=== PATIENT | male | born 1960 | race African-American/Black ===

== ENCOUNTER 2018-11-20 11:29 | Inpatient (IN) | payer OTHER ==
[2018-11-20 12:41] VITALS: BMI 18.1
--- NOTE | 2018-11-20 13:22 | PN ---
[facility] CIWA - CIWA Score Nausea/Vomitin-No Nausea/No Vomiting Muscle Tremors: 1-None Visible, but [place] Anxiety: 4-Mod. Anxious/Guarded Agitation: 0-Normal Activity Paroxysmal Sweats: No Perspiration Orientation: 0-Oriented Tacttile Disturbances: 0-None Auditory Disturbances: 0-None Visual Disturbances: 0-None Headache: 0-None Present CIWA-Ar Total Score: 5
[2018-11-20] MEDS ORDERED: hydrOXYzine PAMOATE 25 MG CAPSULE (FP) PO PRN (13:29)
[2018-11-20] MEDS ORDERED: MAGNESIUM HYDROX 2400MG/30ML ORAL SUSPENSION 30 ML CUP PO PRN (13:29)
[2018-11-20] MEDS ORDERED: IBUPROFEN 400 MG TABLET (FP) PO PRN (13:29)
[2018-11-20] MEDS ORDERED: MAGNESIUM CITRATE 300 ML BOTTLE PO PRN (13:29)
[2018-11-20] MEDS ORDERED: ONDANSETRON *ODT* 4 MG TABLET SL PRN (13:29)
[2018-11-20] MEDS ORDERED: NICOTINE POLACRILEX 2 MG GUM BUC PRN (13:29)
[2018-11-20] MEDS ORDERED: BISMUTH SUBSALICYLATE 262 MG/15 ML BTL PO PRN (13:29)
[2018-11-20] MEDS ORDERED: guaiFENesin 200 MG/10 ML 10 ML UNIT-DOSE CUPS PO PRN (13:29)
[2018-11-20] MEDS ORDERED: traZODone HCL 50 MG TABLET (FP) PO PRN (13:29)
[2018-11-20] MEDS ORDERED: ACETAMINOPHEN 325 MG TABLET (FP) PO PRN ×2 (13:29)
[2018-11-20] MEDS ORDERED: MENTHOL/PHENOL 1 EACH UD MM PRN (13:29)
[2018-11-20] MEDS ORDERED: MAG HYDROX/AL HYDROX/SIMETH 30 ML UNIT-DOSE CUP PO PRN (13:29)
[2018-11-20] MEDS ORDERED: chlordiazePOXIDE HCL 10 MG CAPSULE PO PRN (13:33)
--- NOTE | 2018-11-20 13:47 | HP ---
CIWA Score Nausea/Vomitin-Mild Nausea/No Vomiting Muscle Tremors: 1-None Visible, but [place] Anxiety: 5 Agitation: 2 Paroxysmal Sweats: 1-Minimal Palms Moist Orientation: 0-Oriented Tacttile Disturbances: 0-None Auditory Disturbances: 0-None Visual Disturbances: 0-None Headache: 3-Moderate CIWA-Ar Total Score: 13 - Admission Criteria OASAS Guidelines: Admission for Medically Managed Detox: Requires at least one of the followin. CIWA greater than 12 2. Seizures within the past 24 hours 3. Delirium tremens within the past 24 hours 4. Hallucinations within the past 24 hours 5. Acute intervention needed for co occurring medical disorder 6. Acute intervention needed for co occurring psychiatric disorder 7. Severe withdrawal that cannot be handled at a lower level of care (continued vomiting, continued diarrhea, abnormal vital signs) requiring intravenous medication and/or fluids 8. Admission ROS [facility] Chief Complaint: ETOH withdrawal symptoms. Allergies/Adverse Reactions: Allergies Allergy/AdvReac Type Severity Reaction Status Date / Time No Known Allergies Allergy Verified 11/20/18 12:27 History of Present Illness: Patient is 58 year old AA male with PMH of HTN and Sciatica. Patient is first time admission to [facility] for ETOH withdrawal symptoms. Patient has been treated with Vivitrol 380mg IM monthly at [facility]. Patient has been on treatment x 3 months but relapsed one and half weeks prior to monthly dose due on 11/16/2018. Patient missed groups due to work schedule and was drinking 1/ 2 pint of vodka daily since. Last drink was last night, patient has hx of drinking since teenager. Patient denies hx of seizures, DTs and blackouts. + hx of eye paid search specialist. Patient denies hx of mental illness and SI/HI. VICTORINA 0.0 Urine tox negative. Exam Limitations: No Limitations - Ebola screening Have you traveled outside of the country in the last 21 days: No (N) Have you had contact with anyone from an Ebola affected area: No Have you been sick,other than usual withdrawal symptoms: No Do you have a fever: No - Review of Systems Constitutional: Unintentional Wgt. Loss EENT: reports: No Symptoms Reported Respiratory: reports: No Symptoms reported Cardiac: reports: No Symptoms Reported GI: reports: Nausea, Poor Fluid Intake, Abdominal cramping : reports: Frequency (due to etoh intake) Musculoskeletal: reports: Back Pain, Muscle Pain Integumentary: reports: Sweating (mild moisture to palms of hands) Neuro: reports: Headache, Tremors Endocrine: reports: Unexplained Weight Loss Hematology: reports: No Symptoms Reported Psychiatric: reports: Orientated x3, Anxious Patient History - Patient Medical History Hx Anemia: No Hx Asthma: No Hx Chronic Obstructive Pulmonary Disease (COPD): No Hx Cancer: No Hx Cardiac Disorders: No Hx Congestive Heart Failure: No Hx Hypertension: Yes Hx Hypercholesterolemia: No Hx Pacemaker: No HX Cerebrovascular Accident: No Hx Seizures: No Hx Dementia: No Hx Diabetes: No Hx Gastrointestinal Disorders: No Hx Liver Disease: No Hx Genitourinary Disorders: No Hx Sexually Transmitted Disorders: No Hx Renal Disease (ESRD): No Hx Thyroid Disease: No Hx Human Immunodeficiency Virus (HIV): No (last test negative 2018) Hx Hepatitis C: No Hx Depression: No Hx Suicide Attempt: No Hx Bipolar Disorder: No Hx Schizophrenia: No - Patient Surgical History Past Surgical History: Yes Hx Neurologic Surgery: No Hx Cataract Extraction: No Hx Cardiac Surgery: No Hx Lung Surgery: No Hx Breast Surgery: No Hx Breast Biopsy: No Hx Abdominal Surgery: No Hx Appendectomy: No Hx Cholecystectomy: No Hx Genitourinary Surgery: No Hx Orthopedic Surgery: Yes (right TKR ) Anesthesia Reaction: No - PPD History Previous Implant?: Yes Documented Results: Negative w/o proof PPD to be Administered?: No - Smoking Cessation Smoking history: Current every day smoker Have you smoked in the past 12 months: Yes Aproximately how many cigarettes per day: 20 Hx Chewing Tobacco Use: No Initiated information on smoking cessation: Yes 'Breaking Loose' booklet given: 11/20/18 - Substance & Tx. History Hx Alcohol Use: Yes Hx Substance Use: No Substance Use Type: Alcohol Hx Substance Use Treatment: No - Substances abused Alcohol Substance route: Oral Frequency: Daily Amount used: 1/2-1 PINT Age of first use: 11 Date of last use: 11/19/18 Family Disease History - Family Disease History Family Disease History: Other: Mother (ALCOHOLISM) Admission Physical Exam [facility] - Vital Signs Vital Signs: Vital Signs - 24 hr 11/20/18 11/20/18 12:27 13:07 Temperature 97.5 F L 97.5 F L Pulse Rate 66 66 Respiratory 18 18 Rate Blood Pressure 143/84 143/84 - Physical General Appearance: Yes: Appropriately Dressed, Thin, Tremorous, Sweating, Anxious HEENTM: Yes: EOMI, Hearing grossly Normal, Normocephalic, Normal Voice, GUILLE, Pharynx Normal, Scleral Ictenus R, Scleral Ictenus L Respiratory: Yes: Chest Non-Tender, Lungs Clear, Normal Breath Sounds, No Respiratory Distress, No Accessory Muscle Use Neck: Yes: No masses,lesions,Nodules, Supple, Trachea in good position Breast: Yes: Breast Exam Deferred Cardiology: Yes: Regular Rhythm, Regular Rate, S1, S2 Abdominal: Yes: Normal Bowel Sounds, Non Tender, Flat Genitourinary: Yes: Frequency (due to etoh intake) Back: Yes: Muscle Spasm Extremities: Yes: Normal Inspection, Normal Range of Motion, Non-Tender, Tremors Neurological: Yes: wood shop teacher II-XII NML intact, Fully Oriented, Alert, Motor Strength 5/5, Normal Response, Other (anxious) Integumentary: Yes: Normal Color, Warm, Moist Lymphatic: Yes: Within Normal Limits - Diagnostic (1) Alcohol dependence with uncomplicated withdrawal Current Visit: Yes Status: Acute (2) HTN (hypertension) Current Visit: Yes Status: Chronic Qualifiers: Hypertension type: essential hypertension Qualified Code(s): I10 - Essential (primary) hypertension (3) Substance-induced anxiety disorder Current Visit: Yes Status: Suspected Cleared for Admission [facility] - Detox or Rehab [facility] Level of Care: Medically Managed Detox Regimen/Protocol: Librium Breathalyzer - Breathalyzer Breathalyzer: 0 Urine Drug Screen - Test Device Lot number: [id number] Expiration date: 08/28/20 - Control Is test valid?: Yes - Results Drug screen NEGATIVE: Yes Inpatient Rehab Admission - Rehab Decision to Admit Inpatient rehab admission?: No
[2018-11-20] MEDS: BACLOFEN 10 MG TABLET (FP) PO SCH ×2 (15:24→22:07)
[2018-11-20 17:00] LABS: HEMATOCRIT 40.9 % (35.4-49); HEMOGLOBIN 13.8 GM/dL (11.7-16.9); MCH 32.4 pg (25.7-33.7); MCHC 33.8 g/dl (32.0-35.9); MEAN CELL VOLUME 95.9 fl (80-96); MEAN PLT VOLUME 10.1 fl (7.5-11.1); PLATELET COUNT 216 K/MM3 (134-434); RBC 4.27 M/mm3 (4.00-5.60); RDW 15.3 % (11.9-15.9); WHITE BLOOD COUNT 4.1 K/mm3 (4.0-10.0)
[2018-11-20 17:23] LABS: ALBUMIN 3.8 g/dl (3.4-5.0); BILIRUBIN,TOTAL 2.1 mg/dL (0.2-1); BLOOD UREA NITROGEN 19.9 mg/dL (7-18); CALCIUM 9.6 mg/dL (8.5-10.1); CREATININE 0.8 mg/dL (0.55-1.3); POTASSIUM 3.6 mmol/L (3.5-5.1); TOT PROT 6.7 g/dl (6.4-8.2)
[2018-11-20] MEDS: chlordiazePOXIDE HCL 25 MG CAPSULE PO SCH (22:07)
[2018-11-20] MEDS: THIAMINE HCL 100 MG TABLET (FP) PO SCH (22:07)
[2018-11-20] MEDS: MELATONIN 5 MG TABLETS PO PRN (22:08)
[2018-11-21] MEDS: chlordiazePOXIDE HCL 25 MG CAPSULE PO SCH ×3 (05:43→22:37)
[2018-11-21] MEDS: BACLOFEN 10 MG TABLET (FP) PO SCH ×3 (05:43→22:36)
[2018-11-21] MEDS: NICOTINE 21 MG/24 HOURS TOPICAL PATCH TD SCH (10:14)
[2018-11-21] MEDS: PRENATAL VITAMINS W/ FOLIC ACID TABLET (FP) PO SCH (10:15)
[2018-11-21] MEDS: amLODIPine BESYLATE 5 MG TABLET (FP) PO SCH (10:15)
--- NOTE | 2018-11-21 12:06 | PN ---
S CIWA - CIWA Score Nausea/Vomitin-No Nausea/No Vomiting Muscle Tremors: None Anxiety: 3 Agitation: 2 Paroxysmal Sweats: 3 Orientation: 0-Oriented Tacttile Disturbances: 0-None Auditory Disturbances: 0-None Visual Disturbances: 0-None Headache: 2-Mild CIWA-Ar Total Score: 10 S Progress Note (SOAP) Subjective: c/o sweats, anxiety, and headache. Objective: 11/21/18 12:05 Vital Signs 11/21/18 11/21/18 06:00 10:02 Temperature 98.1 F 97.7 F Pulse Rate 58 L 54 L Respiratory 18 16 Rate Blood Pressure 148/92 136/76 Lab Results WBC 4.1 K/mm3 (4.0-10.0) 11/20/18 14:00 RBC 4.27 M/mm3 (4.00-5.60) 11/20/18 14:00 Hgb 13.8 GM/dL (11.7-16.9) 11/20/18 14:00 Hct 40.9 % (35.4-49) 11/20/18 14:00 MCV 95.9 fl (80-96) 11/20/18 14:00 MCHC 33.8 g/dl (32.0-35.9) 11/20/18 14:00 RDW 15.3 % (11.9-15.9) 11/20/18 14:00 Plt Count 216 K/MM3 (134-434) 11/20/18 14:00 Sodium 142 mmol/L (136-145) 11/20/18 14:00 Potassium 3.6 mmol/L (3.5-5.1) 11/20/18 14:00 Chloride 104 mmol/L (98-107) 11/20/18 14:00 Carbon Dioxide 30 mmol/L (21-32) 11/20/18 14:00 Anion Gap 7 MMOL/L (8-16) L 11/20/18 14:00 BUN 19.9 mg/dL (7-18) H 11/20/18 14:00 Creatinine 0.8 mg/dL (0.55-1.3) 11/20/18 14:00 Random Glucose 97 mg/dL (74-106) 11/20/18 14:00 Calcium 9.6 mg/dL (8.5-10.1) 11/20/18 14:00 Labs noted. Assessment: 11/21/18 12:05 AOX3, in no acute respiratory distress. Full ROM, ambulating in the unit. Withdrawal symptoms. Plan: continue detox.
[2018-11-21] MEDS: MELATONIN 5 MG TABLETS PO PRN (22:37)
[2018-11-21] MEDS: THIAMINE HCL 100 MG TABLET (FP) PO SCH (22:37)
[2018-11-22] MEDS: BACLOFEN 10 MG TABLET (FP) PO SCH ×3 (05:57→22:42)
[2018-11-22] MEDS: chlordiazePOXIDE 5 MG CAPSULE PO SCH ×3 (05:57→22:42)
[2018-11-22] MEDS: NICOTINE 21 MG/24 HOURS TOPICAL PATCH TD SCH (10:44)
[2018-11-22] MEDS: PRENATAL VITAMINS W/ FOLIC ACID TABLET (FP) PO SCH (10:44)
[2018-11-22] MEDS: amLODIPine BESYLATE 5 MG TABLET (FP) PO SCH (10:44)
--- NOTE | 2018-11-22 17:06 | PN ---
[facility] CIWA - CIWA Score Nausea/Vomitin-No Nausea/No Vomiting Muscle Tremors: 2 Anxiety: 2 Agitation: 2 Paroxysmal Sweats: 2 Orientation: 0-Oriented Tacttile Disturbances: 0-None Auditory Disturbances: 0-None Visual Disturbances: 0-None Headache: 0-None Present CIWA-Ar Total Score: 8 S Progress Note (SOAP) Subjective: Feels ok, medication is helping Objective: 11/22/18 17:02 Last Vital Signs Temp Pulse Resp BP Pulse Ox 97.5 F L 64 18 139/94 11/22/18 13:20 11/22/18 13:20 11/22/18 13:20 11/22/18 13:20 Elevated b/p 139/94 (has htn, on med) Laboratory Tests 11/20/18 11/20/18 11/20/18 14:00 14:00 14:00 WBC 4.1 RBC 4.27 Hgb 13.8 Hct 40.9 MCV 95.9 MCH 32.4 MCHC 33.8 RDW 15.3 Plt Count 216 MPV 10.1 Sodium 142 Potassium 3.6 Chloride 104 Carbon Dioxide 30 Anion Gap 7 L BUN 19.9 H Creatinine 0.8 Est GFR (CKD-EPI)AfAm 113.33 Est GFR (CKD-EPI)NonAf 97.78 Random Glucose 97 Calcium 9.6 Total Bilirubin 2.1 H AST 20 ALT 21 Alkaline Phosphatase 66 Total Protein 6.7 Albumin 3.8 RPR Titer Nonreactive HIV 1&2 Ag/Ab, 4th Gen HIV 1&2 Antibody Screen HIV P24 Antigen 11/21/18 11/21/18 06:00 07:00 WBC RBC Hgb Hct MCV MCH MCHC RDW Plt Count MPV Sodium Potassium Chloride Carbon Dioxide Anion Gap BUN Creatinine Est GFR (CKD-EPI)AfAm Est GFR (CKD-EPI)NonAf Random Glucose Calcium Total Bilirubin AST ALT Alkaline Phosphatase Total Protein Albumin RPR Titer HIV 1&2 Ag/Ab, 4th Gen Non reactive HIV 1&2 Antibody Screen Cancelled HIV P24 Antigen Cancelled Labs reviewed: bun 19.9, total bilirubin 2.1 (elevated) Assessment: 11/22/18 17:04 Withdrawal sxs Noted with HTN, azotemia and elevated total bilirubin Plan: Continue detox HTN: continue norvasc, monitor b/p Azotemia: encouraged PO water intake Elevated total bilirubin: most likely from alcoholism, repeat serum total bilirubin
[2018-11-22] MEDS: THIAMINE HCL 100 MG TABLET (FP) PO SCH (22:43)
[2018-11-23] MEDS ORDERED: chlordiazePOXIDE HCL 10 MG CAPSULE PO PRN
[2018-11-23] MEDS: BACLOFEN 10 MG TABLET (FP) PO SCH ×3 (05:22→22:04)
[2018-11-23] MEDS: chlordiazePOXIDE HCL 10 MG CAPSULE PO SCH ×3 (05:22→22:03)
[2018-11-23] MEDS: NICOTINE 21 MG/24 HOURS TOPICAL PATCH TD SCH (10:13)
[2018-11-23] MEDS: amLODIPine BESYLATE 5 MG TABLET (FP) PO SCH (10:14)
[2018-11-23] MEDS: PRENATAL VITAMINS W/ FOLIC ACID TABLET (FP) PO SCH (10:14)
--- NOTE | 2018-11-23 11:34 | PN ---
S CIWA - CIWA Score Nausea/Vomitin-No Nausea/No Vomiting Muscle Tremors: 1-None Visible, but [place] Anxiety: 0-No Anxiety, at Ease Agitation: 1-Slight > Activity Paroxysmal Sweats: 2 Orientation: 0-Oriented Tacttile Disturbances: 0-None Auditory Disturbances: 0-None Visual Disturbances: 0-None Headache: 0-None Present CIWA-Ar Total Score: 4 [facility] Progress Note (SOAP) Subjective: feeling good little anxiety Objective: 11/23/18 11:34 Vital Signs Temperature 97.3 F L 11/23/18 09:37 Pulse Rate 74 11/23/18 09:37 Respiratory Rate 16 11/23/18 09:37 Blood Pressure 123/84 11/23/18 09:37 O2 Sat by Pulse Oximetry (%) aaox3 ambulating no acute distress Assessment: 11/23/18 11:34 mild withdrawal sx Plan: continue detox d/c in am
--- NOTE | 2018-11-23 13:04 | EKG ---
Test Reason : Blood Pressure : / mmHG Vent. Rate : 054 BPM Atrial Rate : 054 BPM P-R Int : 170 ms QRS Dur : 100 ms QT Int : 418 ms P-R-T Axes : 065 035 060 degrees QTc Int : 396 ms SINUS BRADYCARDIA MODERATE VOLTAGE CRITERIA FOR LVH, MAY BE NORMAL VARIANT BORDERLINE ECG NO PREVIOUS ECGS AVAILABLE Confirmed by MEHNAZ GOINS MD ([id number]) on 11/23/2018 1:03:54 PM Referred By: Confirmed By:EMHNAZ GOINS MD
[2018-11-23] MEDS: MELATONIN 5 MG TABLETS PO PRN (22:03)
[2018-11-23] MEDS: THIAMINE HCL 100 MG TABLET (FP) PO SCH (22:03)
--- NOTE | 2018-11-23 23:45 | PN ---
[facility] Progress Note Note: Patient fell in the day room. He reports that he tripped while returning a chair to the day room. He has a laceration to his right eye brow and right eye redness and swelling. He is alert and oriented to person, time, place and situation. He denies loss of consciousness, dizziness, Vital Signs - 24 hr 11/24/18 11/24/18 11/24/18 00:30 05:00 07:00 Temperature 97.7 F 97.7 F Pulse Rate 66 70 Respiratory 18 18 18 Rate Blood Pressure 144/70 157/78 11/24/18 11/24/18 11/24/18 08:09 09:00 09:43 Temperature 97.7 F 97.5 F L 97.5 F L Pulse Rate 66 82 91 H Respiratory 18 18 18 Rate Blood Pressure 144/70 132/68 139/81 PHYSICAL ASSESSMENT: HEAD: Normocephalic. No palpable deformities noted, EYES:PERRLA. Extraocular movements intact. Right eye redness and swelling EARS: Patent Canal. No Ibanez's sign NOSE/FACE: Laceration to right eye brow Mouth: Teath and mandible intact NECK: No midline point tenderness. Trachea midline. Full range of motion of the neck without pain CHEST/HEART: No Surface trauma. Regular rate and rhythm. No murmur, rub or gallop BACK: No contusions, echymosis or abrasions noted EXTREMITIES:No surface trauma. Full range of motion without limitation. Peripheral pulses intact or pain ACTION: Transport patient to ER
[2018-11-24] MEDS ORDERED: chlordiazePOXIDE HCL 10 MG CAPSULE PO ONE (05:00)
[2018-11-24] MEDS: BACLOFEN 10 MG TABLET (FP) PO SCH (06:44)
--- NOTE | 2018-11-24 09:25 | PN ---
S Progress Note Note: pt was seen earlier today with no issues ready to go home when he blew his nose , his right phuong-orbital area became instantly swollen. It appears to be filled with fluid. pt denies of any pain no blurred vision , no VELEZ. pt states this has never happened before. conventional mortgage underwriter called [facility] and spoke with Dr. Craen and report given for evaluation. Plaster Pattern Caster also advised Dr. Crane that pt will be d/c today and can go home after his evaluation.
[2018-11-24 09:44] VITALS: BP 139/81; PULSE 91; TEMP 97.5
--- NOTE | 2018-11-24 10:07 | DS ---
[facility] Detox Discharge Summary Admission Date: 11/20/18 Discharge Date: 11/24/18 - History Present History: Alcohol Dependence - Physical Exam Results Vital Signs: Vital Signs Temperature 97.5 F L 11/24/18 09:43 Pulse Rate 91 H 11/24/18 09:43 Respiratory Rate 18 11/24/18 09:43 Blood Pressure 139/81 11/24/18 09:43 O2 Sat by Pulse Oximetry (%) Pertinent Admission Physical Exam Findings: pt arrived in withdrawals Laboratory Tests 11/20/18 11/20/18 11/20/18 14:00 14:00 14:00 WBC 4.1 RBC 4.27 Hgb 13.8 Hct 40.9 MCV 95.9 MCH 32.4 MCHC 33.8 RDW 15.3 Plt Count 216 MPV 10.1 Sodium 142 Potassium 3.6 Chloride 104 Carbon Dioxide 30 Anion Gap 7 L BUN 19.9 H Creatinine 0.8 Est GFR (CKD-EPI)AfAm 113.33 Est GFR (CKD-EPI)NonAf 97.78 Random Glucose 97 Calcium 9.6 Total Bilirubin 2.1 H AST 20 ALT 21 Alkaline Phosphatase 66 Total Protein 6.7 Albumin 3.8 RPR Titer Nonreactive HIV 1&2 Ag/Ab, 4th Gen HIV 1&2 Antibody Screen HIV P24 Antigen 11/21/18 11/21/18 11/23/18 06:00 07:00 08:35 WBC RBC Hgb Hct MCV MCH MCHC RDW Plt Count MPV Sodium Potassium Chloride Carbon Dioxide Anion Gap BUN Creatinine Est GFR (CKD-EPI)AfAm Est GFR (CKD-EPI)NonAf Random Glucose Calcium Total Bilirubin 1.0 AST ALT Alkaline Phosphatase Total Protein Albumin RPR Titer HIV 1&2 Ag/Ab, 4th Gen Non reactive HIV 1&2 Antibody Screen Cancelled HIV P24 Antigen Cancelled today pt is aaox3 ambulating no s/s of withdrawals however, pt was sent to ED for evaluation of swelling to right phuong-orbital area. - Treatment Hospital Course: Detox Protocol Followed, Detoxed Safely, Responded well, Discharged Condition Good, Rehab Referral Accepted Patient has Accepted a Rehab Referral to: referred to outpatient rehab - Medication Discharge Medications: Ambulatory Orders Amlodipine Besylate [Norvasc -] 5 mg PO DAILY 11/20/18 Baclofen [Lioresal -] 10 mg PO TID 11/20/18 Escitalopram Oxalate [Lexapro -] 10 mg PO DAILY 11/20/18 Multivitamin/Iron/Folic Acid [Daily Vit Formula + Iron Tab] 1 each PO DAILY - Diagnosis (1) Alcohol dependence with uncomplicated withdrawal Current Visit: Yes Status: Chronic (2) HTN (hypertension) Current Visit: Yes Status: Chronic Qualifiers: Hypertension type: essential hypertension Qualified Code(s): I10 - Essential (primary) hypertension (3) Substance-induced anxiety disorder Current Visit: Yes Status: Suspected (4) Closed head injury Current Visit: Yes Status: Acute Qualifiers: Encounter type: initial encounter Qualified Code(s): S09.90XA - Unspecified injury of head, initial encounter - AMA Did Patient Leave Against Medical Advice: No
== END 2018-11-24 09:58 | disposition short-term general hospital (02) | DRG 775 ==
LOC: YASAS 11:29 → Y6N 14:19
PROVIDERS: ADMIT Surgery; ATTEND Surgery
PROC: HZ2ZZZZ Detoxification Services for Substance Abuse Treatment (ICD-10-PCS; principal; 2018-11-20)
DX: F10.230 Alcohol dependence with withdrawal, uncomplicated (principal); F17.210 Nicotine dependence, cigarettes, uncomplicated; F19.280 Other psychoactive substance dependence with psychoactive substance-induced anxiety disorder; I10 Essential (primary) hypertension; R79.89 Other specified abnormal findings of blood chemistry; E80.7 Disorder of bilirubin metabolism, unspecified; M54.30 Sciatica, unspecified side; S09.90XA Unspecified injury of head, initial encounter; S01.111A Laceration without foreign body of right eyelid and periocular area, initial encounter; H57.89 Other specified disorders of eye and adnexa; H05.221 Edema of right orbit; W18.39XA Other fall on same level, initial encounter; Y93.89 Activity, other specified; Y92.238 Other place in hospital as the place of occurrence of the external cause
CPT/HCPCS: 36415; 80053; 82247; 85027; 86480; 86593; 87389; 93005; 93010; J0475

== ENCOUNTER 2018-11-24 01:43 | Emergency (ER) | payer OTHER ==
[2018-11-24 02:17] VITALS: BP 119/75; PULSE 72; TEMP 98.2; BMI 17.1
[2018-11-24] MEDS ORDERED: FLUORESCEIN NA 1 EA STRIP OD ONE (03:05)
--- NOTE | 2018-11-24 03:08 | PDOC ---
History of Present Illness - History of Present Illness Initial Comments: 11/24/18 03:10 Patient is 58 year old AA male with PMH of HTN and Sciatica, sent from [facility] for right eyebow and eye injury hitting himself with a chair. He was being treated at [facility] for ETOH withdrawal symptoms. As per [facility] the patient said he tripped while returning a chair to the day room. He has a laceration to his right eyebrow and what appears to be a subjconjunctival hemorrhage to the right eye redness and swelling. He denies change of vision or pain upon ranging the eye. <Charles Young - Last Filed: 11/24/18 04:22> <Jeanne Mayer - Last Filed: 11/24/18 04:38> - General Chief Complaint: Injury Stated Complaint: FALL/INJURY Past History - Past Medical History Anemia: No Asthma: No Cancer: No Cardiac Disorders: No CVA: No COPD: Yes (Not on meds) CHF: No Dementia: No Diabetes: No GI Disorders: Yes (acid reflux) Disorders: No HTN: Yes Hypercholesterolemia: No Kidney Stones: No Liver Disease: No Seizures: No Thyroid Disease: No - Surgical History Abdominal Surgery: No Appendectomy: No Cardiac Surgery: No Cholecystectomy: No Lung Surgery: No Neurologic Surgery: No Orthopedic Surgery: Yes (right TKR ) - Reproductive History Testicular Surgery: No - Suicide/Smoking/Psychosocial Hx Smoking History: Current some day smoker Have you smoked in the past 12 months: Yes Number of Cigarettes Smoked Daily: 20 Information on smoking cessation initiated: No 'Breaking Loose' booklet given: 11/20/18 Hx Alcohol Use: Yes Drug/Substance Use Hx: No Substance Use Type: Alcohol Hx Substance Use Treatment: Yes <Charles Young - Last Filed: 11/24/18 04:22> <Jeanne Mayer - Last Filed: 11/24/18 04:38> - Past Medical History Allergies/Adverse Reactions: Allergies Allergy/AdvReac Type Severity Reaction Status Date / Time No Known Allergies Allergy Verified 11/24/18 02:17 Home Medications: Ambulatory Orders Amlodipine Besylate [Norvasc -] 5 mg PO DAILY 11/20/18 Baclofen [Lioresal -] 10 mg PO TID 11/20/18 Escitalopram Oxalate [Lexapro -] 10 mg PO DAILY 11/20/18 Multivitamin/Iron/Folic Acid [Daily Vit Formula + Iron Tab] 1 each PO DAILY Trauma Specific PMHX - Complaint Specific PMHX Arthritis: No <Charles Young - Last Filed: 11/24/18 04:22> Review of Systems - Review of Systems Able to Perform ROS?: Yes Is the patient limited [place] proficient: No Constitutional: No: Symptoms Reported HEENTM: No: Symptoms Reported Respiratory: No: Symptoms reported Cardiac (ROS): No: Symptoms Reported ABD/GI: No: Symptoms Reported : No: Symptoms Reported Musculoskeletal: Yes: See HPI Integumentary: No: Symptoms Reported Neurological: No: Symptoms reported All Other Systems: Reviewed and Negative <Charles Young - Last Filed: 11/24/18 04:22> *Physical Exam - Vital Signs Last Vital Signs Temp Pulse Resp BP Pulse Ox 98.2 F 72 19 119/75 98 11/24/18 01:43 11/24/18 01:43 11/24/18 01:43 11/24/18 01:43 11/24/18 01:43 - Physical Exam General Appearance: Yes: Nourished, Appropriately Dressed. No: Apparent Distress HEENT: positive: EOMI, GUILLE, Normal ENT Inspection, Other (right eye: subconjunctival erythema 1cm laceration above right eyebrow. ) Respiratory/Chest: positive: Lungs Clear, Normal Breath Sounds. negative: Chest Tender, Respiratory Distress Cardiovascular: positive: Regular Rhythm, Regular Rate, S1, S2 Gastrointestinal/Abdominal: positive: Normal Bowel Sounds, Flat, Soft. negative : Tender Musculoskeletal: positive: Normal Inspection. negative: CVA Tenderness Extremity: positive: Normal Capillary Refill, Normal Inspection, Normal Range of Motion Integumentary: positive: Normal Color, Dry, Warm Neurologic: positive: Fully Oriented, Alert, Normal Mood/Affect, Normal Response , Motor Strength 5/5 <Charles Young - Last Filed: 11/24/18 04:22> - Vital Signs Last Vital Signs Temp Pulse Resp BP Pulse Ox 98.2 F 72 19 119/75 98 11/24/18 01:43 11/24/18 01:43 11/24/18 01:43 11/24/18 01:43 11/24/18 01:43 <Jeanne Mayer - Last Filed: 11/24/18 04:38> Procedures - Laceration/Wound Repair Right Face Wound Length: to 2.5 cm Wound Explored: clean Wound's Depth, Shape: superficial Irrigated w/ Saline: Yes Betadine Prep: No Wound Debrided: minimal Wound Repaired With: Dermabond <Jeanne Mayer - Last Filed: 11/24/18 04:38> ED Treatment Course - RADIOLOGY Radiology Studies Ordered: Category Date Time Status HEAD CT WITHOUT CONTRAST [CT] Stat CT Scan 11/24/18 02:28 Taken - Medications Given in the ED: ED Medications Discontinued Medications Generic Name Dose Route Start Last Admin Trade Name Freq PRN Reason Stop Dose Admin Fluorescein Sodium 1 ea 11/24/18 03:05 11/24/18 03:20 Fluorets - OD 11/24/18 03:06 1 ea ONCE ONE Administration <Jeanne Mayer - Last Filed: 11/24/18 04:38> Medical Decision Making - Medical Decision Making 11/24/18 03:54 58f with right eyebrow lacerationa and subconjunctival hematoma no change in visual acuity, no pain upon ranging the eye. No trauma identified on the globe or cornea using UV light and florets. Ct head and orbit read: The ventricular system is midline and nondilated. The sulcal pattern is normal for the patient's age. T small vessel ischemic changes are noted. Here is no bleed, mass , extra-axial fluid collection or mass effect. No skull fracture or skull lesion is identified. The visualized paranasal sinuses and mastoid air cells are clear other than a right maxillary sinus retention cyst or polyp. The orbits appear normal. 11/24/18 04:22 Laceration closed with dermabond. Patient ok to go back to [facility]. <Charles Young - Last Filed: 11/24/18 04:22> *DC/Admit/Observation/Transfer - Discharge Dispostion Decision to Admit order: No <Charles Young - Last Filed: 11/24/18 04:22> <Jeanne Mayer Randal - Last Filed: 11/24/18 04:38> Diagnosis at time of Disposition: Closed head injury - Discharge Dispostion Disposition: HOME Condition at time of disposition: Fair - Referrals Referrals: Giuseppe Ya MD [Primary Care Provider] - - Patient Instructions Printed Discharge Instructions: DI for Laceration Repair With Dermabond Additional Instructions: Come back to the emergency department for any new, worsening or concerning symptom. Do not wet the wound for 24h. - Post Discharge Activity
--- NOTE | 2018-11-24 03:24 | PDOC ---
Attending Attestation - Resident Resident Name: [email or web address] - ED Attending Attestation I have performed the following: I have examined & evaluated the patient, The case was reviewed & discussed with the resident, I agree w/resident's findings & plan - HPI HPI: 11/24/18 03:23 58 year old AA male with PMH of HTN and Sciatica, ETOH abuse presenting from [facility] for facial injury right eye pain, swelling laceration. Patient fell in the day room. He reports that he tripped while returning a chair to the day room. He has a laceration to his right eye brow and right eye redness and swelling. He is alert and oriented to person, time, place and situation. He denies loss of consciousness, dizziness, 11/24/18 03:24 - Physicial Exam PE: 11/24/18 03:24 Agree with the resident's HPI and PE as documented in the electronic medical record. NAD, well appearing, EOMI, PERRL, CN II to XII groslly intact, firm globe, rt upper eyebrow 2cm linear laceration, nonbleeding. rt medial ciliary injection/ subconjunctival hemorrhage. dentition intact, oropharynx clear. MMM, nl conjunctiva, anicteric; neck supple. lungs clear, RRR, abdomen soft nontender. Back nontender. JOHNSON x4, no focal neuro deficits. No peripheral edema. normal color for ethnicity, WWP. 11/24/18 04:31 - Medical Decision Making 11/24/18 03:24 See HPI for details. Prior notes reviewed, including admissions, discharges and consultations. Vital signs reviewed, wnl. Vital Signs Temp Pulse Resp BP Pulse Ox 98.2 F 72 19 119/75 98 11/24/18 01:43 11/24/18 01:43 11/24/18 01:43 11/24/18 01:43 11/24/18 01:43 ddx, ICH, epidural hematoma, SDH, orbital fx, facial contusion, laceration. visual acuity preserved no corneal abrasion on fluorescein staining CT orbit and head neg for acute pathology. laceration repair with dermabond, by resident, see proc note, uncomplicated. tetanus_up dated here, last unclear pt made aware of impression and plan, discharge back to [facility] wound care instructions back to [facility] information relayed back 11/24/18 04:36
[2018-11-24] MEDS ORDERED: FLUORESCEIN NA 1 EA STRIP ONE (03:26)
== END 2018-11-24 04:56 | disposition home or self-care (01) ==
LOC: JER 01:43
PROC: 0HQ1XZZ Repair Face Skin, External Approach (ICD-10-PCS; principal; 2018-11-24)
DX: S01.111A Laceration without foreign body of right eyelid and periocular area, initial encounter (principal); H11.31 Conjunctival hemorrhage, right eye; W01.190A Fall on same level from slipping, tripping and stumbling with subsequent striking against furniture, initial encounter; Y93.89 Activity, other specified; Y92.238 Other place in hospital as the place of occurrence of the external cause; Y99.8 Other external cause status; I10 Essential (primary) hypertension; K21.9 Gastro-esophageal reflux disease without esophagitis; J44.9 Chronic obstructive pulmonary disease, unspecified; F10.20 Alcohol dependence, uncomplicated
CPT/HCPCS: 12011-25; 70450-TC; 99281-25

== ENCOUNTER 2018-11-24 10:16 | Emergency (ER) | payer OTHER ==
[2018-11-24 10:58] VITALS: TEMP 98.1; BMI 37.8
--- NOTE | 2018-11-24 13:12 | PDOC ---
History of Present Illness - General Chief Complaint: Eye Problem Stated Complaint: Eye Problem Time Seen by Provider: 11/24/18 11:46 History Source: Patient Exam Limitations: No Limitations - History of Present Illness Initial Comments: 11/24/18 13:09 58M seen yesterday after falling and hitting his head at [facility] who presents to the ER with complaints of R eye swelling. Pt states that he was blowing his nose and felt his lower eyelid swell up. Denies changes in vision. Denies discharge in his eyes. Past History - Past Medical History Allergies/Adverse Reactions: Allergies Allergy/AdvReac Type Severity Reaction Status Date / Time No Known Allergies Allergy Verified 11/24/18 02:17 Home Medications: Ambulatory Orders Amlodipine Besylate [Norvasc -] 5 mg PO DAILY 11/20/18 Baclofen [Lioresal -] 10 mg PO TID 11/20/18 Escitalopram Oxalate [Lexapro -] 10 mg PO DAILY 11/20/18 Multivitamin/Iron/Folic Acid [Daily Vit Formula + Iron Tab] 1 each PO DAILY Anemia: No Asthma: No Cancer: No Cardiac Disorders: No CVA: No COPD: Yes (Not on meds) CHF: No Dementia: No Diabetes: No GI Disorders: Yes (acid reflux) Disorders: No HTN: Yes Hypercholesterolemia: No Kidney Stones: No Liver Disease: No Seizures: No Thyroid Disease: No - Surgical History Abdominal Surgery: No Appendectomy: No Cardiac Surgery: No Cholecystectomy: No Lung Surgery: No Neurologic Surgery: No Orthopedic Surgery: Yes (right TKR ) - Reproductive History Testicular Surgery: No - Immunization History TDAP Vaccination: No - Suicide/Smoking/Psychosocial Hx Smoking History: Current every day smoker Have you smoked in the past 12 months: Yes Number of Cigarettes Smoked Daily: 12 Information on smoking cessation initiated: No 'Breaking Loose' booklet given: 11/20/18 Hx Alcohol Use: Yes Drug/Substance Use Hx: No Substance Use Type: Alcohol Hx Substance Use Treatment: Yes Review of Systems - Review of Systems Constitutional: No: Chills, Fever HEENTM: Yes: Other (Swelling around eye). No: Eye Pain, Blurred Vision, Recent change in vision Neurological: No: Headache, Numbness, Tingling, Weakness *Physical Exam - Vital Signs Last Vital Signs Temp Pulse Resp BP Pulse Ox 98.1 F 77 16 122/81 98 11/24/18 10:50 11/24/18 10:50 11/24/18 10:50 11/24/18 10:50 11/24/18 10:50 - Physical Exam General Appearance: Yes: Nourished, Appropriately Dressed HEENT: positive: Normal Voice, Hearing Grossly Normal, Other (Subconjunctival hemorrhage in R eye with normal EOM, swelling over R lower eyelid w/ mild crepitus palpated. No bony tenderness. L 20/20, R 20/40.) ED Treatment Course - RADIOLOGY Radiology Studies Ordered: Category Date Time Status ORBIT CT W/O CONTRAST [CT] Stat CT Scan 11/24/18 12:42 Ordered Medical Decision Making - Medical Decision Making 11/24/18 13:11 58M with fall yesterday, negative head CT, who presents with lower eyelid swelling. Will do CT of orbit. Pt noted to be verbally abusive to staff after "waiting [address] ordered. Pending imaging. Pt well appearing otherwise. 11/24/18 14:08 CT read: Acute fracture involving medial aspect of the floor of the right orbit with downward (4 mm) displacement into the maxillary sinus. There is no entrapment of the right inferior rectus muscles. Right retro-orbital emphysematous changes are noted. Right facial, preseptal emphysematous changes. [facility] paged for transfer. Pt aware of transfer. 11/24/18 14:58 Dr. Branham (plastics) and Dr. Moran (ED) aware of patient. Consent obtained for transfer. *DC/Admit/Observation/Transfer Diagnosis at time of Disposition: Orbital fracture Qualifiers: Encounter type: initial encounter Fracture type: closed Qualified Code(s): S02.80XA - Fracture of other specified skull and facial bones, unspecified side , initial encounter for closed fracture - Discharge Dispostion Disposition: TRANSFER ACUTE CARE/OTHER HOSP Condition at time of disposition: Guarded Decision to Admit order: No - Referrals Referrals: Giuseppe Ya MD [Primary Care Provider] - - Patient Instructions Printed Discharge Instructions: DI for Orbital Fracture - Post Discharge Activity - Transfer to Acute Care Facility Receiving Facility: [facility] Accepting Physician:: Dr. Branham
--- NOTE | 2018-11-24 14:49 | PDOC ---
Documentation entered by Kim Ramsay SCRIBE, acting as scribe for Perry Payne MD. Perry Payne MD: This documentation has been prepared by the Devendra willett Sammi, SCRIBE, under my direction and personally reviewed by me in its entirety. I confirm that the documentation accurately reflects all work, treatment, procedures, and medical decision making performed by me. Attending Attestation - Resident Resident Name: Ivan Bowling - ED Attending Attestation I have performed the following: I have examined & evaluated the patient, The case was reviewed & discussed with the resident, I agree w/resident's findings & plan, Exceptions are as noted - HPI HPI: 11/24/18 12:48 The patient is a 58 year old male who presents to the emergency department for evaluation of right lower eyelid swelling. The patient states he was evaluated in our ED yesterday s/p fall where head CT was negative. The patient reports he was blowing his nose this morning when it began to bleed and his right lower eyelid puffed up. Denies chest pain, shortness of breath, headache and dizziness. Denies fever, chills, nausea, vomiting, diarrhea and constipation. Denies dysuria, frequency, urgency and hematuria. Allergies: NKA - Physicial Exam PE: 11/24/18 12:59 Vitals: Triage vital signs reviewed General Appearance: No acute distress, well nourished, well developed Head: Atraumatic Eyes: (+)subconjunctival hemorrhage to right eye, EOMI. (+)swelling below right eye with no bony tenderness to palpation. Cardiac: Regular rate and rhythm, no murmurs, no rubs, no gallops Lungs: Clear to auscultation bilateral, good air movement bilaterally Abdomen: Soft, nondistended, normal bowel sounds, nontender to palpation Extremities: Full range of motion to all extremities, no cyanosis, clubbing, or edema - Medical Decision Making 11/24/18 15:04 CT with evidence of air behind the orbit with some effacement against the optic nerve given the potential for complication of tension orbit patient will require transfer for facial surgery plastics versus [facility]
[2018-11-24 15:21] VITALS: BP 112/70; PULSE 68
== END 2018-11-24 17:20 | disposition short-term general hospital (02) ==
LOC: JER 10:16
DX: S02.81XA Fracture of other specified skull and facial bones, right side, initial encounter for closed fracture (principal); W01.190A Fall on same level from slipping, tripping and stumbling with subsequent striking against furniture, initial encounter; Y93.89 Activity, other specified; Y92.238 Other place in hospital as the place of occurrence of the external cause; Y99.8 Other external cause status; I10 Essential (primary) hypertension; J44.9 Chronic obstructive pulmonary disease, unspecified; K21.9 Gastro-esophageal reflux disease without esophagitis; F10.20 Alcohol dependence, uncomplicated
CPT/HCPCS: 70480-TC; 99283-25